=== PATIENT | female | born 1990 | race Caucasian/White ===

== ENCOUNTER 2018-04-06 10:24 | Observation (INO) ==
[2018-04-06] MEDS ORDERED: LEVOFLOXACIN INJ 100 ML IV ONE (12:45)
[2018-04-06] MEDS ORDERED: LEVOFLOXACIN INJ 500 MG in PREMIX 1 EACH IV ONE (12:53)
[2018-04-06] MEDS ORDERED: LACTATED RINGERS 1,000 ML IV SCH (13:00)
[2018-04-06] MEDS ORDERED: SCOPOLAMINE 1.5 MG PATCH TRANSDERM ONE (13:27)
[2018-04-06] MEDS ORDERED: FAMOTIDINE 20 MG TABLET ONE (13:27)
[2018-04-06] MEDS ORDERED: PROMETHAZINE 25 MG/1 ML VIAL IM PRN (14:27)
[2018-04-06] MEDS ORDERED: MORPHINE 10 MG/1 ML VIAL IV SCH (14:30)
[2018-04-06] MEDS ORDERED: PROPOFOL 200 MG/20 ML VIAL IV ONE (14:39)
[2018-04-06] MEDS ORDERED: SEVOFLURANE 1 UNIT/15 MINUTE INH ONE (14:39)
[2018-04-06] MEDS ORDERED: MIDAZOLAM 2 MG/2 ML VIAL ONE (14:39)
[2018-04-06] MEDS ORDERED: fentaNYL 100 MCG/2 ML VIAL ONE (14:39)
[2018-04-06] MEDS ORDERED: HYDROmorphone 2 MG TABLET PO ONE (15:14)
[2018-04-06] MEDS ORDERED: MORPHINE 10 MG/1 ML VIAL ONE ×2 (15:39→16:40)
[2018-04-06] MEDS ORDERED: TAMSULOSIN 0.4 MG CAPSULE PO ONE ×2 (15:41→17:40)
[2018-04-06] MEDS ORDERED: MORPHINE 10 MG/1 ML VIAL IV ONE (16:39)
[2018-04-06] MEDS ORDERED: MORPHINE 10 MG/1 ML VIAL IV PRN (17:45)
[2018-04-06] MEDS: DEXTROSE 5% NACL 0.45% 1,000 ML IV SCH (17:46)
[2018-04-06] MEDS: MORPHINE 10 MG/1 ML VIAL IV PRN ×2 (18:12→22:33)
[2018-04-07] MEDS: MORPHINE 10 MG/1 ML VIAL IV PRN (03:06)
[2018-04-07] MEDS: DEXTROSE 5% NACL 0.45% 1,000 ML IV SCH (03:11)
[2018-04-07 09:45] VITALS: BP 105/66
[2018-04-07] MEDS ORDERED: TAMSULOSIN 0.4 MG CAPSULE PO ONE (17:36)
== END 2018-04-07 10:00 | disposition home or self-care (01) ==
LOC: N.5E 10:24 → N.RAD 10:24 → N.SDSINP 12:19 → N.5E 17:32
PROVIDERS: ADMIT Urology; ATTEND Urology